=== PATIENT | male | born 1985 | race African-American/Black ===

== ENCOUNTER 2017-11-02 11:21 | Emergency (ER) | payer SELFPAY ==
[~2017-11-02] VITALS: Ht 185.4 cm; Wt 100.0 kg
[2017-11-02 11:25] VITALS: BP 134/71; PULSE 92; RESP 15; TEMP 97.9; O2SAT 97
--- NOTE | 2017-11-02 11:36 | PD ---
HPI Chief Complaint: Complaint Time Seen by Provider: 11:32 Travel History International Travel<30 days: No Contact w/Intl Traveler<30days: No Traveled to known affect area: No History of Present Illness HPI 32-year-old male presents the ED for evaluation of dysuria and white penile discharge which started this morning. Patient endorses 1 day history of vomiting and NB diarrhea. He denies fever, chills, nausea, vomiting, testicular pain, hematuria, history of STD. He endorses unprotected sex with a single female partner. He states that the partner endorses vaginal itching but is otherwise asymptomatic. He is allergic to penicillin. No treatment attempted at home. PFSH Social History Tobacco Use: No Allergies-Medications (Allergen,Severity, Reaction): Coded Allergies: penicillin G (Verified Allergy, Severe, Anaphylaxis, 11/02/17) Reported Meds & Prescriptions Reported Meds & Active Scripts Active Bactrim DS (Sulfamethoxazole-Trimethoprim) 800-160 Mg Tab 1 Tab PO BID Review of Systems Except as stated in HPI: all other systems reviewed are Neg Physical Exam Narrative GENERAL: Well-nourished, well-developed -[place] male no acute distress. SKIN: Focused skin assessment warm/dry. HEAD: Normocephalic. EYES: No scleral icterus. No injection or drainage. NECK: Supple, trachea midline. No JVD or lymphadenopathy. CARDIOVASCULAR: Regular rate and rhythm without murmurs, gallops, or rubs. RESPIRATORY: Breath sounds equal bilaterally. No accessory muscle use. GASTROINTESTINAL: Abdomen soft, non-tender, nondistended. Active bowel sounds. No suprapubic tenderness. GENITOURINARY: Circumcised. Testes descended bilaterally without evidence of rotation. No lesions or erythema. + Creamy white urethral discharge. MUSCULOSKELETAL: No cyanosis, or edema. BACK: Nontender without obvious deformity. No CVA tenderness. Data Data Last Documented VS Vital Signs Date Time Temp Pulse Resp B/P (MAP) Pulse Ox O2 Delivery O2 Flow Rate FiO2 11/02/17 11:25 97.9 92 15 134/71 (92) 97 Orders Orders Urinalysis - C+S If Indicated (11/02/17 11:27) Gc And Chlamydia Pcr (11/02/17 11:27) Azithromycin (Zithromax) (11/02/17 11:45) Gentamicin Inj (Gentamicin Inj) (11/02/17 11:45) Urine Culture (11/02/17 11:30) Ed Discharge Order (11/02/17 11:58) Labs Laboratory Tests Test 11/02/17 11:30 Urine Color YELLOW Urine Turbidity HAZY Urine pH 6.5 Urine Specific [place] 1.026 Urine Protein TRACE mg/dL Urine Glucose (UA) NEG mg/dL Urine Ketones NEG mg/dL Urine Occult Blood SMALL Urine Nitrite NEG Urine Bilirubin NEG Urine Urobilinogen 2.0 MG/DL Urine Leukocyte Esterase LARGE Urine RBC 16 /hpf Urine WBC 72 /hpf Urine Bacteria RARE /hpf Urine Mucus FEW /lpf Microscopic Urinalysis Comment CULTURE INDICATED MDM Medical Decision Making Medical Screen Exam Complete: Yes Emergency Medical Condition: Yes Differential Diagnosis UTI versus gonorrhea versus chlamydia versus urethritis versus other Narrative Course 32-year-old male presents the ED for evaluation of dysuria and white penile discharge started this morning. Patient endorses 1 day history of vomiting and diarrhea. He denies fever, chills, nausea, vomiting, testicular pain, hematuria , history of STD. He endorses unprotected sex with a single female partner. Partner reports vaginal itching but is otherwise asymptomatic. He is allergic to penicillin. Vitals reviewed. Exam performed in the presence of the nurse reveals small amount of penile discharge, otherwise unremarkable. Patient agreed to empiric treatment for gonorrhea and chlamydia, was administered 2 g azithromycin p.o. and 240 mg of gentamicin IM. UA shows large leukocyte esterase, 72 WBCs, rare bacteria. Culture pending. Patient's prescribed Bactrim DS twice daily 7 days. He is instructed to take all antibiotics as prescribed, abstain from sex, notify all partners, follow with the health department for full battery of STD testing and test of cure. He indicated understanding of instructions. He is agreeable to care plan. He is stable and discharged home. Diagnosis Primary Impression: Urinary tract infection Qualified Codes: N39.0 - Urinary tract infection, site not specified Additional Impression: Abnormal penile discharge, without blood Referrals: [facility] Dept. Additional Instructions: Rest, hydrate. Abstain from sex until test of cure is performed at the health department. Follow-up with the health department in 1 week for test of cure and a full battery of STD testing. Inform all sexual partners of symptoms. Begin antibiotics today and take them until every pill is gone. Return to the ED for worsening symptoms or any urgent or emergent medical condition. Med/Other Pt SpecificInfo: Prescription(s) given Scripts Sulfamethoxazole-Trimethoprim (Bactrim DS) 800-160 Mg Tab 1 TAB PO BID for Infection, #14 TAB 0 Refills Prov: Osman Apodaca MD 11/02/17 Disposition: 01 DISCHARGE HOME Condition: Stable [place] November 02, 2017 11:36
[2017-11-02] MEDS ORDERED: GENTAMICIN SULFATE 80 MG/2 ML VIAL IM ONE (11:45)
[2017-11-02] MEDS ORDERED: AZITHROMYCIN 250 MG TAB PO ONE (11:45)
[2017-11-02 11:52] LABS: BACTERIA, URINE RARE /hpf; BILIRUBIN, URINE NEG (NEG); BLOOD, URINE SMALL (NEG); GLUCOSE,URINE NEG (NEG); KETONE, URINE NEG (NEG); MUCUS URINE FEW /lpf (OCC); NITRITE,URINE NEG (NEG); PH, URINE 6.5 (5.0-8.5); URINE COLOR YELLOW (YELLW/STRAW); URINE LEUKOCYTE ESTERASE LARGE (NEG)
[2017-11-02] MEDS ORDERED: BACT800T5 PO ×2 (11:56→12:06)
[2017-11-03] MEDS ORDERED: PRED20 PO (21:23)
== END 2017-11-02 12:17 | disposition home or self-care (01) ==
LOC: NEPK 11:21
DX: N39.0 Urinary tract infection, site not specified (principal); R36.9 Urethral discharge, unspecified
CPT/HCPCS: 81001; 87086; 87491; 87591; 96372; 99283; J1580

== ENCOUNTER 2017-11-03 19:08 | Emergency (ER) | payer SELFPAY ==
[~2017-11-03 19:08] MED LIST: BACT800T5 PO
[2017-11-03 19:27] VITALS: BP 137/72; PULSE 102; RESP 18; TEMP 99.1; O2SAT 98
[2017-11-03 19:45] VITALS: BP 136/79; PULSE 100; RESP 18; O2SAT 99
[2017-11-03] MEDS ORDERED: SODIUM CHLOR 0.9% 1000 ML INJ 1,000 ML IV SCH (19:50)
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
[2017-11-03] MEDS ORDERED: diphenhydrAMINE HCL 50 MG/ML VIAL IM ONE (20:00)
[2017-11-03] MEDS ORDERED: predniSONE 20 MG TAB PO ONE (20:00)
[2017-11-03] MEDS ORDERED: EPINEPHrine HCL (1:1000) 1 MG/ML VIAL IM ONE (20:00)
[2017-11-03] MEDS ORDERED: diphenhydrAMINE HCL 50 MG/ML VIAL IVP ONE (20:00)
[2017-11-03 20:07] VITALS: BP 136/79; PULSE 99
[2017-11-03] MEDS ORDERED: PRED20 PO (21:23)
== END 2017-11-03 21:41 | disposition home or self-care (01) ==
LOC: NEPD 19:08
DX: R22.0 Localized swelling, mass and lump, head (principal); Z72.0 Tobacco use
CPT/HCPCS: 96372; 96374; 99284; J0171; J1200; J7030; J7512